=== PATIENT | female | born 1935 | race Hispanic/Latino ===

== ENCOUNTER 2018-09-01 07:43 | Observation (INO) | payer MEDICARE ==
[2018-08-30 08:58] VITALS: BP 169/73
[2018-08-30 09:05] LABS: BASOPHILS % (AUTO) 0.7 % (0.0-5.0); EOSINOPHILS % (AUTO) 1.9 % (0.0-8.0); HEMATOCRIT 43.3 % (36-48); LYMPHOCYTES % (AUTO) 38.9 % (21.0-51.0); MEAN CORPUSCULAR HEMOGLOBIN 30.4 pg (27.0-33.0); MEAN CORPUSCULAR HGB CONC 32.7 g/dL (32.0-36.0); MONOCYTES % (AUTO) 7.7 % (3.0-13.0); NEUTROPHILS % (AUTO) 50.8 % (40.0-77.0); NUCLEATED RED BLOOD CELLS 0.1 % (0.0-0.19); PLATELET COUNT (AUTO) 270 K/uL (130-400); RED BLOOD CELL COUNT(AUTO) 4.65 MIL/uL (4.00-5.50); RED CELL DISTRIBUTION WIDTH 13.4 % (11.0-15.5); WHITE BLOOD COUNT (AUTO) 6.2 K/uL (4.8-10.8)
[2018-08-30 09:10] LABS: BILIRUBIN,URINE Negative (NEGATIVE); COLOR,URINE Yellow (YELLOW); GLUCOSE, URINE (UA) Negative (NEGATIVE); KETONES,URINE Negative (NEGATIVE); LEUKOCYTE ESTERASE ,URINE Moderate (NEGATIVE); NITRATE,URINE Negative (NEGATIVE); OCCULT BLOOD,URINE Negative (NEGATIVE); PH,URINE 6.5 (5.0-8.0); PROTEIN,URINE Negative (NEGATIVE); UROBILINOGEN,URINE 0.2 mg/dL (0.2-1.0)
[2018-08-30 09:17] LABS: APPEARANCE,URINE CLEAR (CLEAR)
[2018-08-30 09:20] LABS: CREATININE 0.9 mg/dL (0.5-1.5); POTASSIUM 4.4 mmol/L (3.5-5.1)
[2018-08-30 09:21] LABS: INR 0.98 (0.85-1.15); PARTIAL THROMBOPLASTIN TIME 27.8 SEC (26.3-35.5); PROTHROMBIN TIME 10.3 SEC (9.6-11.6)
[2018-08-30 09:28] LABS: BACTERIA,URINE Rare /HPF (None Seen); RBC,URINE 0-1 /HPF (0-1); SQUAMOUS EPITHELIAL CELL,UR Rare /HPF (0-2); WBC,URINE 0-1 /HPF (0-1)
--- NOTE | 2018-08-30 09:33 | NUR ---
allergy message left with Aidee Bach nurse to inform him that patient is allergic to shrimp. Awaiting for further orders.
--- NOTE | 2018-08-31 12:14 | NUR ---
NOTE REPORTED UA, NO ORDERS. REPORTED ALLERGY TO RONALD CASTANEDA, OFFICE WILL CALL IN SCRIPT FOR PT PREDNISONE 60MG PO FOR TODAY. THEN BENADRYL 50MG IV AND 120 SOLU MEDROL IV 1 HOUR BEFORE PROCEDURE.
--- NOTE | 2018-08-31 15:13 | NUR ---
NOTE SPOKE TO JESUS FROM DR SCRUGGS OFFICE, PER DR RUIZ HE WILL DO A SHORT FORM FOR THE H&P
[~2018-09-01] VITALS: Ht 160 cm; Wt 84.3 kg
[2018-09-01] VITALS (23 sets, daily range): BP systolic 128–170; BP diastolic 54–81
[~2018-09-01 07:43] MED LIST: ASPI-1181 PO; CHOL100040 PO; LEVO50TA4 PO; OMEP20CA10 PO
[2018-09-01] MEDS ORDERED: METHYLPREDNISOLONE SOD SUCC 125MG/2ML VIAL IVP ONE (08:00)
[2018-09-01] MEDS ORDERED: DiphenhydrAMINE HCL 50 MG/ML VIAL IV ONE (08:00)
--- NOTE | 2018-09-01 08:00 | NUR ---
ASSESSMENT PT HERE FOR PROCEDURE. DENIES ANY CHEST PAIN, SOB AT THIS TIME. SMALL ABRASION NOTED TO LEFT MIDDLE FINGER. PT STATES, " I BURNED MYSELF COOKING". SONS IN LOBBY
--- NOTE | 2018-09-01 09:00 | NUR ---
MEDICATION SOLUMEDROL AND BENADRYL GIVEN SLOW IVP AT AN INTERVAL OF 5 MINUTES APART. IMMEDIATELY AFTER BENADRYL WAS GIVEN, PT STARTED TO COUGH. STATES , " I CANT SEEM TO SWALLOW" "I CANT SWALLOW". COUGHING. 02 SAT AT 99%. HR IN THE 90'S. PT STATES HER ALLERGIES ARE ONLY TO SHRIMP. ASKING FOR WATER TO DRINK. OFFERED AN ORAL TOOTHETTE TO KEEP MOUTH MOIST. STAYED AT BEDSIDE WITH PT. LUNG SOUNDS CLEAR BILATERALLY.
--- NOTE | 2018-09-01 09:18 | NUR ---
DR. RUIZ PT FEELS BETTER AFTER KEEPING TOOTHETTE IN MOUTH. STATES SHE STILL FEELS LIKE SOMETHING IS " CAUGHT IN HER THROAT". DR. RUIZ MADE AWARE OF PTS SITUATION AFTER MEDICATION ADMINISTRATION. STATES HE WILL COME TO EVALUATE PRIOR TO PROCEDURE.
--- NOTE | 2018-09-01 09:45 | NUR ---
COUGHING PT NOT COUGHING MUCH. STATES SHE FEELS BETTER. 02 SAT 99% ON ROOM AIR. DENIES ANY DIFFICULTY BREATHING. LUNG SOUNDS CLEAR BILATERALLY. WILL MONITOR
--- NOTE | 2018-09-01 10:30 | NUR ---
DR. SARA RUIZ HERE TO EVALUATE PT. SPOKE TO PT AND PTS TWO SONS IN REGARDS TO PROCEDURE AND PTS REACTION TO MEDICATION GIVEN. STATES HE SPOKE TO DR. RIVERA CONSULTING PHYSICIAN THEY BOTH AGREED TO ADMIT PT FOR OBSERVATION IN CCU. PTS PROCEDURE WILL BE CANCELLED TODAY. ORDERS RECEIVED TO HAVE PT SEE DR. TSE AN OUTPT BASIS FOR EVALUATION OF ALLERGIES. PT AND PTS SON ARE IN AGREEMENT. NO OTHER QUESTIONS AT THIS TIME. PT STATES SHE FEELS " ALOT BETTER".
[2018-09-01] MEDS ORDERED: SODIUM CHLORIDE 0.9% 1000ML 1,000 ML IV SCH (10:52)
--- NOTE | 2018-09-01 10:57 | NUR ---
REPORT REPORT GIVEN TO JANINE NAIDU RN IN ICU. PT NOT COUGHING AT THIS TIME. O2 SAT OF 99% ON ROOM AIR. DENIES ANY DIFFICULTY BREATHING. DRINKING WATER AT THIS TIME.
--- NOTE | 2018-09-01 11:15 | NUR ---
TRANSFER PT TRANSFERRED TO CCU VIA WHEELCHAIR. PT DENIES ANY DISCOMFORT AT THIS TIME.
--- NOTE | 2018-09-01 11:20 | NUR ---
RECEIVED PATIENT FROM DAY PATIENT AFTER PATIENT HAD REACTION TO MEDICATIONS GIVEN PRIOR TO HAVING LHC. LHC WAS CANCELLED AND PT WAS ADMITTED FOR OBSERVATION.
[2018-09-01] MEDS ORDERED: CALC625T68 PO (12:07)
[2018-09-01] MEDS ORDERED: MULT-1103 PO (12:07)
[2018-09-01] MEDS ORDERED: CALC-1009 PO (12:07)
[2018-09-01] MEDS ORDERED: ANTI1CAP5 PO (12:07)
[2018-09-01] MEDS ORDERED: PRED20TA3 PO (12:07)
--- NOTE | 2018-09-01 18:00 | NUR ---
PT HAS TOLERATED FLUIDS AND OFFERING N/C. SONS AT BEDSIDE AND OFFERING N/C.
--- NOTE | 2018-09-01 20:00 | NUR ---
ASSESSMENT AWAKE. RESTING IN BED. C/O BERTRAND. ASSESSMENT COMPLETED SEE FLOW SHEET. Addendum: 09/01/18 at 2111 by DANDY CANTRELL RN RN Amended: Links added.
[2018-09-01] MEDS ORDERED: ACETAMINOPHEN 325 MG TAB PO PRN (20:30)
[2018-09-02] VITALS (7 sets, daily range): BP systolic 120–143; BP diastolic 50–75
[2018-09-02] MEDS ORDERED: LEVOTHYROXINE 50 MCG TABLET PO SCH (06:30)
--- NOTE | 2018-09-02 08:26 | NUR ---
PATIENT HAS BEEN ASKING WHAT TIME SHE WILL BE DISCHARGED AND HER SONS ARE HERE AND WONDERING ALSO WHAT TIME SHE WOULD BE GOING HOME. ADVISED PT AND FAMILY THAT DID NOT KNOW WHAT TIME DOCTORS WOULD ROUND.
--- NOTE | 2018-09-02 10:30 | NUR ---
DR RUIZ SPOKE WITH PATIENT AND DISCHARGE ORDERS WERE OBTAINED.
--- NOTE | 2018-09-02 11:10 | NUR ---
PT WAS DISCHARGED AFTER INSTRUCTIONS WERE GIVEN AND APPOINTMENTS WITH DR. Henry AND DR. RUIZ WERE OBTAINED. DR. HENRY WILL CALL PATIENT WITH APPOINTMENT DATE AND TIME.
== END 2018-09-02 11:10 | disposition home or self-care (01) ==
LOC: DAH 07:43 → DAHIP 07:44 → DAH 07:44 → 2CH 11:11
PROVIDERS: ADMIT Internal Medicine Cardiovascular Disease; ATTEND Internal Medicine Cardiovascular Disease
DX: R07.89 Other chest pain (principal); E03.9 Hypothyroidism, unspecified; I10 Essential (primary) hypertension; I25.10 Atherosclerotic heart disease of native coronary artery without angina pectoris; I25.2 Old myocardial infarction; I44.7 Left bundle-branch block, unspecified; K21.9 Gastro-esophageal reflux disease without esophagitis; Z91.041 Radiographic dye allergy status; Z82.49 Family history of ischemic heart disease and other diseases of the circulatory system; Z88.8 Allergy status to other drugs, medicaments and biological substances; Z79.899 Other long term (current) drug therapy
CPT/HCPCS: 36415; 71045; 80048; 81001; 85025; 85610; 85730; 93005; 96374; 96375; A4606; G0378 ×27; J1200; J2930

== ENCOUNTER → 2019-03-28 | Outpatient (CLI) | payer MEDICARE ==
[~2019-03-28] MED LIST changes: +ANTI1CAP5 PO; +CALC-1009 PO; +CALC625T68 PO; +MULT-1103 PO; +OMEP-50 PO; -OMEP20CA10 PO; +PRED20TA3 PO
== END | disposition home or self-care (01) ==
LOC: RAH 08:56
PROVIDERS: ATTEND Internal Medicine Cardiovascular Disease
DX: K76.0 Fatty (change of) liver, not elsewhere classified (principal)
CPT/HCPCS: 76705

== ENCOUNTER → 2019-03-30 | Outpatient (CLI) | payer MEDICARE ==
[2019-03-30 12:33] LABS: CREATININE 0.9 mg/dL (0.5-1.5); POTASSIUM 4.1 mmol/L (3.5-5.1)
[2019-03-30 12:46] LABS: BASOPHILS % (AUTO) 0.6 % (0.0-5.0); EOSINOPHILS % (AUTO) 2.9 % (0.0-8.0); LYMPHOCYTES % (AUTO) 38.3 % (21.0-51.0); MEAN CORPUSCULAR HEMOGLOBIN 31.4 pg (27.0-33.0); MEAN CORPUSCULAR HGB CONC 33.5 g/dL (32.0-36.0); MEAN CORPUSCULAR VOLUME 93.7 fL (79-99); MONOCYTES % (AUTO) 8.2 % (3.0-13.0); NUCLEATED RED BLOOD CELLS 0.1 % (0.0-0.19); PLATELET COUNT (AUTO) 251 K/uL (130-400); RED BLOOD CELL COUNT(AUTO) 4.59 MIL/uL (4.00-5.50); WHITE BLOOD COUNT (AUTO) 6.7 K/uL (4.8-10.8)
== END | disposition home or self-care (01) ==
LOC: LAB 11:55
PROVIDERS: ATTEND Urology
DX: D30.00 Benign neoplasm of unspecified kidney (principal)
CPT/HCPCS: 36415; 80048; 85025

== ENCOUNTER → 2019-04-15 | Outpatient (CLI) | payer MEDICARE ==
[~2019-04-15] MED LIST changes: +IOHEXOL 350 MG/ML 100ML INFUS..BTL IV ONE
== END | disposition home or self-care (01) ==
LOC: RAH 08:46
PROVIDERS: ATTEND Urology
DX: N28.1 Cyst of kidney, acquired (principal); K44.9 Diaphragmatic hernia without obstruction or gangrene; D30.00 Benign neoplasm of unspecified kidney; M51.35 Other intervertebral disc degeneration, thoracolumbar region; R16.0 Hepatomegaly, not elsewhere classified
CPT/HCPCS: 74178; Q9967

== ENCOUNTER → 2019-04-28 | Outpatient (CLI) | payer MEDICARE ==
[~2019-04-28] MED LIST changes: -IOHEXOL 350 MG/ML 100ML INFUS..BTL IV ONE
== END | disposition home or self-care (01) ==
LOC: SHCH 11:46
PROVIDERS: ATTEND Internal Medicine Cardiovascular Disease
DX: I10 Essential (primary) hypertension (principal)
CPT/HCPCS: 93306

== ENCOUNTER → 2019-10-21 | Outpatient (CLI) | payer MEDICARE ==
[~2019-10-21] MED LIST changes: -OMEP-50 PO; +OMEP20CA12 PO
== END | disposition home or self-care (01) ==
LOC: RAH 08:42
PROVIDERS: ATTEND Family Medicine
DX: E88.89 Other specified metabolic disorders (principal); R16.0 Hepatomegaly, not elsewhere classified
CPT/HCPCS: 76700

== ENCOUNTER 2020-12-23 07:41 | Emergency (ER) | payer MEDICARE ==
[~2020-12-23] VITALS: Ht 162.6 cm; Wt 81.6 kg
[~2020-12-23 07:41] MED LIST changes: -ASPI-1181 PO; +ASPI-1443 PO
[2020-12-23 07:48] VITALS: BP 151/70
[2020-12-23] MEDS ORDERED: NACL 0.9% 1000ML 1,000 ML IV SCH (08:15)
[2020-12-23] MEDS ORDERED: FAMOTIDINE 20MG VIAL IV SCH (08:15)
[2020-12-23] MEDS ORDERED: FAMOTIDINE 20MG VIAL IV ONE (08:16)
[2020-12-23 08:45] LABS: BASOPHILS % (AUTO) 0.6 % (0.0-5.0); HEMATOCRIT 39.2 % (36-48); LYMPHOCYTES % (AUTO) 35.4 % (21.0-51.0); MEAN CORPUSCULAR HEMOGLOBIN 30.1 pg (27.0-33.0); MEAN CORPUSCULAR HGB CONC 32.9 g/dL (32.0-36.0); MEAN CORPUSCULAR VOLUME 91.4 fL (79-99); MONOCYTES % (AUTO) 9.2 % (3.0-13.0); NEUTROPHILS % (AUTO) 53.4 % (40.0-77.0); PLATELET COUNT (AUTO) 260 K/uL (130-400); RED BLOOD CELL COUNT(AUTO) 4.29 MIL/uL (4.00-5.50); RED CELL DISTRIBUTION WIDTH 12.8 % (11.0-15.5); WHITE BLOOD COUNT (AUTO) 7.8 K/uL (4.8-10.8)
[2020-12-23] MEDS ORDERED: ONDANSETRON 4MG INJ IVP SCH (09:05)
[2020-12-23 09:18] LABS: ALBUMIN 3.2 g/dL (3.5-5.0); BILIRUBIN,TOTAL 0.7 mg/dL (0.2-1.0); CREATININE 1.1 mg/dL (0.5-1.5); TOTAL PROTEIN, SERUM 7.1 g/dL (6.0-8.3)
[2020-12-23 10:00] VITALS: BP 160/71
[2020-12-23 10:30] LABS: APPEARANCE,URINE Clear (CLEAR); BILIRUBIN,URINE Negative (NEGATIVE); COLOR,URINE Yellow (YELLOW); GLUCOSE, URINE (UA) Negative (NEGATIVE); KETONES,URINE Negative (NEGATIVE); LEUKOCYTE ESTERASE ,URINE Negative (NEGATIVE); NITRATE,URINE Negative (NEGATIVE); OCCULT BLOOD,URINE Negative (NEGATIVE); PROTEIN,URINE Negative (NEGATIVE); UROBILINOGEN,URINE 0.2 mg/dL (0.2-1.0)
[2020-12-23 12:00] VITALS: BP 137/66
[2020-12-23] MEDS ORDERED: ONDA4TAB4 PO (12:50)
[2020-12-23] MEDS ORDERED: FAMO-136 PO (12:50)
== END 2020-12-23 14:30 | disposition home or self-care (01) ==
LOC: EDH 07:41
DX: K29.00 Acute gastritis without bleeding (principal); I10 Essential (primary) hypertension; I25.10 Atherosclerotic heart disease of native coronary artery without angina pectoris; E78.5 Hyperlipidemia, unspecified; E66.9 Obesity, unspecified; E11.9 Type 2 diabetes mellitus without complications; Z91.013 Allergy to seafood; Z79.82 Long term (current) use of aspirin; Z79.899 Other long term (current) drug therapy; Z79.52 Long term (current) use of systemic steroids
CPT/HCPCS: 36415; 80053; 81003; 83690; 84484; 85025; 87088; 93005; 96374; 96375; 99284; J2405; J3490